=== PATIENT | female | born 1960 ===

== ENCOUNTER 2016-10-30 12:20 | Emergency (ER) | payer MEDICARE ==
[2016-10-30 12:33] VITALS: TEMP 97.9
--- NOTE | 2016-10-30 14:24 | C.PDOC ---
History Of Present Illness Pt c/o left heel pain. Denies trauma. Time Seen by Provider: 10/30/16 12:35 Chief Complaint (Nursing): Lower Extremity Problem/Injury History Per: Patient Onset/Duration Of Symptoms: Days (2) Current Symptoms Are (Timing): Still Present Severity: Moderate Additional History Per: Prior Records - Ankle/Foot Feet: 1 - Pain Past Medical History Reviewed: Historical Data, Nursing Documentation, Vital Signs Vital Signs: Last Vital Signs Temp 97.9 F 10/30/16 12:30 Pulse 74 10/30/16 12:30 Resp 18 10/30/16 12:30 BP 129/85 10/30/16 12:30 Pulse Ox 100 10/30/16 14:24 - Medical History PMH: Depression - [facility] Procedures DRAINAGE OF PERICARDIAL CAVITY, PERCUTANEOUS APPROACH, DIAGN (05/21/15) EXCISION OF STOMACH, ENDO, DIAGN (05/21/15) INTRODUCTION OF SERUM/TOX/VACCINE INTO MUSCLE, PERC APPROACH (05/21/15) PHARMACOTHERAPY FOR SUBSTANCE ABUSE, NICOTINE REPLACE (05/21/15) Family History: States: Unknown Family Hx - Social History Hx Tobacco Use: Yes Hx Alcohol Use: Yes (occasionally) Hx Substance Use: No - Immunization History Hx Tetanus Toxoid Vaccination: No Hx Influenza Vaccination: No Hx Pneumococcal Vaccination: No Review Of Systems Except As Marked, All Systems Reviewed And Found Negative. Constitutional: Negative for: Fever, Weakness Cardiovascular: Negative for: Chest Pain Respiratory: Negative for: Shortness of Breath Gastrointestinal: Negative for: Vomiting, Abdominal Pain Musculoskeletal: Positive for: Foot Pain (left). Negative for: Neck Pain, Back Pain, Leg Pain Skin: Negative for: Rash Neurological: Negative for: Weakness, Numbness, Seizures, Altered Mental Status Physical Exam - Physical Exam Appears: Non-toxic, No Acute Distress Skin: Normal Color, Warm, Dry Head: Atraumatic, Normacephalic Eye(s): bilateral: PERRL Neck: Normal ROM, Supple Extremity: Normal ROM, Tenderness (around left heel area), No Pedal Edema, No Calf Tenderness, Capillary Refill (wnl), No Deformity, Swelling (around left heel area) Extremity: Bilateral: Normal Color And Temperature Pulses: Left Dorsalis Pedis: Normal Neurological/Psych: Oriented x3, Normal Motor, Normal Sensation ED Course And Treatment O2 Sat by Pulse Oximetry: 100 Pulse Ox Interpretation: Normal - Other Rad Left foot x-rays X-Ray: Interpreted by Me, Viewed By Me Interpretation: No acute fx. Reassessment Condition: Improved Disposition Counseled Patient/Family Regarding: Studies Performed, Diagnosis, Need For Followup, Rx Given - Disposition Referrals: Roe Lenz MD [Staff Provider] - [facility] [Outside] Disposition: HOME/ ROUTINE Disposition Time: 14:46 Condition: STABLE Additional Instructions: Rest. Elevate. Ice. Follow up with a Web Software Engineer (Foot doctor) for further evaluation and treatment. Return to the ER if you develop worsening of symptoms or if you have any other concerns. Prescriptions: Ibuprofen [Motrin Tab] 400 mg PO TID PRN #15 tab PRN Reason: Pain, Moderate (4-7) Instructions: Heel Spur (ED) - Clinical Impression Clinical Impression: Pain of left heel
--- NOTE | 2016-10-30 14:33 | RAD ---
PROCEDURE: Left Foot Radiographs. HISTORY: Posterior foot pain. COMPARISON: None. FINDINGS: BONES: There is no acute fracture or bone destruction. There is diffuse bone demineralization. JOINTS: There is severe degenerative osteoarthrosis in the 1st MTP joint with medial subluxation and moderate hallux valgus. SOFT TISSUES: Normal. OTHER FINDINGS: None. 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 No acute displaced fracture or dislocation.
[2016-10-30 15:18] VITALS: BP 126/78; PULSE 64; RESP 20; O2SAT 99
== END 2016-10-30 15:45 | disposition home or self-care (01) ==
LOC: C.ER 12:20
DX: M79.672 Pain in left foot (principal)

== ENCOUNTER 2016-12-21 06:07 | Day surgery (SDC) | payer MEDICARE, OTHER ==
[2016-12-18 10:13] VITALS: BMI 23.6
[2016-12-21 07:09] VITALS: O2SAT 100
[2016-12-21] MEDS ORDERED: Propofol 10 mg/ml Inj (20 ML) ONE ×2 (07:42→08:23)
[2016-12-21] MEDS ORDERED: Lactated Ringer's 500 ML IV ONE ×2 (07:52→08:45)
[2016-12-21 09:07] VITALS: TEMP 98
[2016-12-21 10:05] VITALS: BP 110/68; PULSE 70; RESP 20
== END 2016-12-21 10:00 | disposition home or self-care (01) ==
LOC: C.ENDO 06:07
PROVIDERS: ATTEND Internal Medicine Gastroenterology
DX: Z12.11 Encounter for screening for malignant neoplasm of colon (principal); D12.2 Benign neoplasm of ascending colon; D12.3 Benign neoplasm of transverse colon; D12.4 Benign neoplasm of descending colon; K62.1 Rectal polyp; K57.30 Diverticulosis of large intestine without perforation or abscess without bleeding; K64.1 Second degree hemorrhoids; K29.70 Gastritis, unspecified, without bleeding; K20.9 Esophagitis, unspecified; K29.80 Duodenitis without bleeding; K44.9 Diaphragmatic hernia without obstruction or gangrene
CPT/HCPCS: 43239; 45380; 45385; 88305; J2704; J3010; J7120

== ENCOUNTER 2017-01-12 06:25 | Day surgery (SDC) | payer MEDICARE, OTHER ==
[2016-12-18 10:31] VITALS: BMI 23.6
[2017-01-12 07:08] VITALS: O2SAT 100
[2017-01-12] MEDS ORDERED: Ketamine 50 mg/ml Inj (10 ml) ONE (07:54)
[2017-01-12] MEDS ORDERED: Midazolam 2 MG/2 ML VIAL ONE (07:56)
[2017-01-12] MEDS ORDERED: Propofol 10 mg/ml Inj (20 ML) ONE (07:56)
[2017-01-12] MEDS ORDERED: Strong Iodine Topical Sol. 5%-10% TOP ONE (08:14)
[2017-01-12] MEDS ORDERED: Lactated Ringer's 500 ML IV SCH (08:15)
--- NOTE | 2017-01-12 08:18 | CP.SDSHP ---
Same Day Surgery H & P - History Proposed Procedure: EGD/EUS/EMR Pre-Op Diagnosis: SCC of esophagus - Previous Medical/Surgical History Comments: pancreatitis - Allergies Allergies: Allergies No Known Allergies Allergy (Verified 10/30/16 14:00) - Physical Exam General Appearance: nl Vital Signs: Vital Signs 01/12/17 06:58 Temperature 97 F L Pulse Rate 80 Respiratory 20 Rate Blood Pressure 102/71 O2 Sat by Pulse 100 Oximetry Mental Status: Alert & Oriented x3 Neuro: WNL Heart: WNL Lungs: WNL GI: WNL - {Optional Preform as Required} Abdomen: WNL - Impression Impression: SCC of esophagus Pt. Evaluated Today:Candidate for Anesthesia & Procedure: Yes - Date & Time Date: 01/12/17 Time: : Short Stay Discharge - Short Stay Discharge Admitting Diagnosis/Reason for Visit: ESOPHAGEAL SQUAMOUS CELL CARANOMA Disposition: HOME/ ROUTINE
[2017-01-12] MEDS ORDERED: ePHEDrine 50 mg/ml Inj ONE (08:25)
[2017-01-12] MEDS ORDERED: Succinylcholine Chloride 20 mg/ml Syr (5 ml) IV ONE (08:25)
[2017-01-12 09:33] VITALS: TEMP 96.6
[2017-01-12 11:15] VITALS: BP 92/60; PULSE 85; RESP 21
== END 2017-01-12 11:10 | disposition home or self-care (01) ==
LOC: C.ENDO 06:25
PROVIDERS: ATTEND Internal Medicine
DX: C15.9 Malignant neoplasm of esophagus, unspecified (principal); K44.9 Diaphragmatic hernia without obstruction or gangrene; K29.70 Gastritis, unspecified, without bleeding; K29.80 Duodenitis without bleeding
CPT/HCPCS: 43237; J2704; J3010; J7120

== ENCOUNTER 2017-01-26 06:07 | Day surgery (SDC) | payer MEDICARE, OTHER ==
[2017-01-26 06:50] VITALS: BMI 23.4
[2017-01-26] MEDS ORDERED: Propofol 10 mg/ml Inj (20 ML) ONE (07:32)
[2017-01-26] MEDS ORDERED: Midazolam 2 MG/2 ML VIAL ONE (07:38)
--- NOTE | 2017-01-26 07:47 | CP.SDSHP ---
Same Day Surgery H & P - History Proposed Procedure: egd emr Pre-Op Diagnosis: scc of esophagus - Allergies Allergies: Allergies No Known Allergies Allergy (Verified 10/30/16 14:00) - Physical Exam General Appearance: nl Vital Signs: Vital Signs 01/26/17 01/26/17 06:50 07:41 Temperature 97.2 F L 97.2 F L Pulse Rate 86 86 Respiratory 20 20 Rate Blood Pressure 110/68 110/68 O2 Sat by Pulse 99 99 Oximetry Mental Status: Alert & Oriented x3 Neuro: WNL Heart: WNL Lungs: WNL GI: WNL - {Optional Preform as Required} Abdomen: WNL - Impression Impression: scc for emr Pt. Evaluated Today:Candidate for Anesthesia & Procedure: Yes - Date & Time Date: 01/26/17 Time: 07:47 Short Stay Discharge - Short Stay Discharge Admitting Diagnosis/Reason for Visit: ESOPHAGEAL SQUAMOUS CELL CARCINOMA Disposition: HOME/ ROUTINE
[2017-01-26] MEDS ORDERED: Strong Iodine Topical Sol. 5%-10% TOP ONE (08:00)
[2017-01-26] MEDS ORDERED: Rocuronium 10 mg/ml (5 ml) ONE (08:22)
[2017-01-26] MEDS ORDERED: Succinylcholine Chloride 20 mg/ml Syr (5 ml) IV ONE (09:02)
[2017-01-26] MEDS: HYDROmorphone 0.5 mg/0.5 ml ISec IVP PRN (09:55)
[2017-01-26 10:00] VITALS: O2SAT 100
[2017-01-26 11:41] VITALS: BP 127/88; PULSE 90; RESP 16; TEMP 97.8
== END 2017-01-26 11:35 | disposition home or self-care (01) ==
LOC: C.ENDO 06:07
PROVIDERS: ATTEND Internal Medicine
DX: C15.9 Malignant neoplasm of esophagus, unspecified (principal); K29.80 Duodenitis without bleeding; K44.9 Diaphragmatic hernia without obstruction or gangrene; K29.70 Gastritis, unspecified, without bleeding
CPT/HCPCS: 43239; 88305; 88312; J1170; J2001; J2250; J2405; J2704; J3010

== ENCOUNTER 2017-04-16 10:03 | Day surgery (SDC) | payer MEDICARE ==
[2017-04-16 10:38] VITALS: BMI 24.0
[2017-04-16] MEDS ORDERED: Strong Iodine Topical Sol. 5%-10% TOP ONE (10:54)
[2017-04-16] MEDS ORDERED: Propofol 10 mg/ml Inj (20 ML) ONE (11:56)
[2017-04-16] MEDS ORDERED: Rocuronium 10 mg/ml (5 ml) ONE (11:57)
[2017-04-16] MEDS ORDERED: Midazolam 2 MG/2 ML VIAL ONE (11:57)
[2017-04-16] MEDS ORDERED: Lidocaine Hydrochloride 5 ML INJ ONE ×2 (12:32→12:33)
[2017-04-16] MEDS ORDERED: Esmolol 100 mg/10ml Inj IV ONE (12:32)
[2017-04-16] MEDS ORDERED: Neostigmine Methylsulfate 3mg/3ml Syringe IV ONE (13:15)
[2017-04-16] MEDS ORDERED: Morphine 4 MG/ML VIAL IV ONE (13:45)
[2017-04-16] MEDS ORDERED: Morphine 4 MG/ML VIAL ONE (14:02)
[2017-04-16 14:12] VITALS: TEMP 96.4
[2017-04-16 16:48] VITALS: BP 122/61; PULSE 88; RESP 17; O2SAT 97
== END 2017-04-16 16:00 | disposition home or self-care (01) ==
LOC: C.ENDO 10:03
PROVIDERS: ATTEND Internal Medicine
DX: C15.9 Malignant neoplasm of esophagus, unspecified (principal); K31.7 Polyp of stomach and duodenum; K29.70 Gastritis, unspecified, without bleeding; K44.9 Diaphragmatic hernia without obstruction or gangrene
CPT/HCPCS: 43239; 43251; 88305; 88313; 88342; J2250; J2270; J2405; J2704; J2710; J2765; J3010

== ENCOUNTER 2017-06-11 06:09 | Day surgery (SDC) | payer MEDICARE ==
[2017-05-03 09:14] VITALS: BMI 24.5
[2017-06-11 07:07] LABS: MEAN CELL VOLUME 85.4 fL (81.0-99.0); MEAN CORPUSCULAR HEMOGLOBIN 29.3 pg (27.0-31.0); MEAN CORPUSCULAR HGB CONC 34.3 g/dL (33.0-37.0); MEAN PLATELET VOLUME 7.7 fL (7.2-11.7); RBC 4.43 Mil/uL (3.80-5.20); RED CELL DISTRIBUTION WIDTH 15.9 % (11.5-14.5)
[2017-06-11 07:16] LABS: PROTHROMBIN TIME 11.2 SECONDS (9.7-12.2)
[2017-06-11 07:32] LABS: BLOOD UREA NITROGEN 16 mg/dL (7-17); CALCIUM 9.4 mg/dl (8.6-10.4); GFR AFRICAN-AMERICAN > 60; GFR NON-AFRICAN AMERICAN > 60
--- NOTE | 2017-06-11 07:59 | CP.SDSHP ---
Same Day Surgery H & P - History Proposed Procedure: egd emr Pre-Op Diagnosis: scc of esophagus - Previous Medical/Surgical History Previous Surgical History: s/p emr esophagus - Allergies Allergies: Allergies No Known Allergies Allergy (Verified 06/11/17 06:47) - Physical Exam General Appearance: nl Vital Signs: Vital Signs 06/11/17 06:40 Temperature 97.4 F L Pulse Rate 80 Respiratory 20 Rate Blood Pressure 113/72 O2 Sat by Pulse 98 Oximetry Mental Status: Alert & Oriented x3 Neuro: WNL Heart: WNL Lungs: WNL GI: WNL - {Optional Preform as Required} Abdomen: WNL - Impression Impression: scc of esophagus Pt. Evaluated Today:Candidate for Anesthesia & Procedure: Yes - Date & Time Date: 06/11/17 Time: 07:59 Short Stay Discharge - Short Stay Discharge Admitting Diagnosis/Reason for Visit: MALIGNANT NEOPLASM OF ESOPHAGUS, PANCREATITIS, PVD Disposition: HOME/ ROUTINE
[2017-06-11] MEDS ORDERED: Succinylcholine Chloride 20 mg/ml Syr (5 ml) IV ONE (08:05)
[2017-06-11] MEDS ORDERED: Rocuronium 10 mg/ml (5 ml) ONE (08:05)
[2017-06-11] MEDS ORDERED: Propofol 10 mg/ml Inj (20 ML) ONE (08:05)
[2017-06-11] MEDS ORDERED: Lidocaine Hydrochloride 5 ML INJ ONE (08:05)
[2017-06-11] MEDS ORDERED: Strong Iodine Topical Sol. 5%-10% TOP ONE (08:15)
[2017-06-11] MEDS ORDERED: Neostigmine Methylsulfate 3mg/3ml Syringe IV ONE (08:54)
[2017-06-11] MEDS ORDERED: Lactated Ringer's 500 ML IV SCH (09:30)
[2017-06-11 09:49] VITALS: O2SAT 100
[2017-06-11 11:08] VITALS: BP 108/83; PULSE 73; RESP 18; TEMP 98
== END 2017-06-11 11:00 | disposition home or self-care (01) ==
LOC: C.ENDO 06:09
PROVIDERS: ATTEND Internal Medicine
DX: C15.9 Malignant neoplasm of esophagus, unspecified (principal); I73.9 Peripheral vascular disease, unspecified; K85.90 Acute pancreatitis without necrosis or infection, unspecified
CPT/HCPCS: 36415; 43239; 43251; 80048; 85027; 85610; 85730; 88305; 88312; 88313; 88342; J2405; J2704; J2710; J3010; J7120

== ENCOUNTER 2017-07-30 06:12 | Day surgery (SDC) | payer MEDICARE, OTHER ==
[2017-07-24 09:16] VITALS: BMI 24.0
[2017-07-30] MEDS ORDERED: Simethicone 40 mg/0.6 ml Liquid (30 ml) ONE (07:26)
[2017-07-30] MEDS ORDERED: Propofol 10 mg/ml Inj (20 ML) ONE (07:47)
[2017-07-30] MEDS ORDERED: Strong Iodine Topical Sol. 5%-10% TOP ONE (07:51)
--- NOTE | 2017-07-30 07:53 | CP.SDSHP ---
Same Day Surgery H & P - History Proposed Procedure: egd/emr Pre-Op Diagnosis: scc esophagus - Previous Medical/Surgical History Cardiac: Hypertension, PVD - Allergies Allergies: Allergies No Known Allergies Allergy (Verified 06/11/17 06:47) - Physical Exam General Appearance: nl Vital Signs: Vital Signs 07/30/17 06:38 Temperature 97.1 F L Pulse Rate 80 Respiratory 20 Rate Blood Pressure 110/72 O2 Sat by Pulse 98 Oximetry Mental Status: Alert & Oriented x3 Neuro: WNL Heart: WNL Lungs: WNL GI: WNL - {Optional Preform as Required} Abdomen: WNL - Impression Impression: scc esophagus Pt. Evaluated Today:Candidate for Anesthesia & Procedure: Yes - Date & Time Date: 07/30/17 Time: 07:52 Short Stay Discharge - Short Stay Discharge Admitting Diagnosis/Reason for Visit: PVD / CHRONIC PANCREATITIS / MALIGNANT NEOPLASM Disposition: HOME/ ROUTINE
[2017-07-30] MEDS ORDERED: Succinylcholine Chloride 20 mg/ml Syr (5 ml) IV ONE (08:49)
[2017-07-30 09:06] VITALS: O2SAT 100
[2017-07-30 09:30] VITALS: RESP 15; TEMP 97.5
[2017-07-30 10:31] VITALS: BP 123/85; PULSE 83
== END 2017-07-30 10:25 | disposition home or self-care (01) ==
LOC: C.ENDO 06:12
PROVIDERS: ATTEND Internal Medicine
DX: C15.9 Malignant neoplasm of esophagus, unspecified (principal); K86.1 Other chronic pancreatitis; I73.9 Peripheral vascular disease, unspecified; I10 Essential (primary) hypertension; K22.10 Ulcer of esophagus without bleeding; K29.60 Other gastritis without bleeding; K29.80 Duodenitis without bleeding; K86.81 Exocrine pancreatic insufficiency
CPT/HCPCS: 43239; 43254; 88305; 88312; J2001; J2704; J3010

== ENCOUNTER 2017-09-10 08:15 | Day surgery (SDC) | payer MEDICARE ==
[~2017-09-10 08:15] MED LIST: Propofol 10 mg/ml Inj (20 ML) ONE
[2017-09-10 08:32] VITALS: BMI 24.7
[2017-09-10] MEDS ORDERED: Strong Iodine Topical Sol. 5%-10% TOP ONE ×2 (08:50→09:49)
[2017-09-10] MEDS ORDERED: Succinylcholine Chloride 20 mg/ml Syr (5 ml) IV ONE (09:14)
[2017-09-10] MEDS ORDERED: Propofol 10 mg/ml Inj (20 ML) ONE (09:14)
--- NOTE | 2017-09-10 09:36 | CP.SDSHP ---
Same Day Surgery H & P - History Proposed Procedure: egd cryo Pre-Op Diagnosis: scc espohagus/hgd - Previous Medical/Surgical History Previous Surgical History: esophageal emr - Allergies Allergies: Allergies No Known Allergies Allergy (Verified 09/10/17 08:31) - Physical Exam General Appearance: nl Vital Signs: Vital Signs 09/10/17 09/10/17 08:43 09:08 Temperature 96.8 F L Pulse Rate 83 83 Respiratory 20 Rate Blood Pressure 130/76 O2 Sat by Pulse 100 Oximetry Mental Status: Alert & Oriented x3 Neuro: WNL Heart: WNL Lungs: WNL GI: WNL - {Optional Preform as Required} Abdomen: WNL - Impression Impression: scc esophagus Pt. Evaluated Today:Candidate for Anesthesia & Procedure: Yes - Date & Time Date: 09/10/17 Time: 09:36 Short Stay Discharge - Short Stay Discharge Admitting Diagnosis/Reason for Visit: MALIGNANT NEOPLASM OF ESOPHAGUS, UNSPECIFIED Disposition: HOME/ ROUTINE
[2017-09-10] MEDS ORDERED: HYDROmorphone 0.5 mg/0.5 ml ISec IVP PRN (10:54)
[2017-09-10 12:42] VITALS: O2SAT 96
[2017-09-10 12:46] VITALS: RESP 18
[2017-09-10 12:48] VITALS: BP 121/77; PULSE 77; TEMP 98
== END 2017-09-10 12:35 | disposition home or self-care (01) ==
LOC: C.ENDO 08:15
PROVIDERS: ATTEND Internal Medicine
DX: C15.9 Malignant neoplasm of esophagus, unspecified (principal)
CPT/HCPCS: 43235; C1886; J2001; J2704; J2765; J3010

== ENCOUNTER → 2017-10-03 | Day surgery (SDC) | payer MEDICARE ==
[~2017-10-03] MED LIST changes: +Strong Iodine Topical Sol. 5%-10% TOP ONE
[2017-10-03 11:19] VITALS: BMI 24.0
--- NOTE | 2017-10-03 13:21 | CP.SDSHP ---
Same Day Surgery H & P - History Proposed Procedure: egd cryo Pre-Op Diagnosis: scc of esophagus - Allergies Allergies: Allergies No Known Allergies Allergy (Verified 10/03/17 11:19) - Physical Exam Vital Signs: Vital Signs 10/03/17 11:32 Temperature 97.5 F L Pulse Rate 87 Respiratory 19 Rate Blood Pressure 97/75 L O2 Sat by Pulse 95 Oximetry Mental Status: Alert & Oriented x3 Neuro: WNL Heart: WNL Lungs: WNL GI: WNL - {Optional Preform as Required} Abdomen: WNL - Impression Impression: egd Pt. Evaluated Today:Candidate for Anesthesia & Procedure: Yes - Date & Time Date: 10/03/17 Time: 13:21 Short Stay Discharge - Short Stay Discharge Admitting Diagnosis/Reason for Visit: MALIGNANT NEOPLASM OF ESOPHAGUS, UNSPECIFIED Disposition: HOME/ ROUTINE
[2017-10-03 14:16] VITALS: TEMP 98; O2SAT 100
[2017-10-03 15:04] VITALS: BP 105/77; PULSE 90; RESP 18
== END | disposition home or self-care (01) ==
LOC: C.ENDO 10:19
PROVIDERS: ATTEND Internal Medicine
DX: K20.8 Other esophagitis (principal); Z85.01 Personal history of malignant neoplasm of esophagus
CPT/HCPCS: 43239; 88305; J2001; J2704; J3010

== ENCOUNTER 2017-10-29 06:36 | Day surgery (SDC) | payer MEDICARE ==
[2017-10-03 11:19] VITALS: BMI 24.0
[2017-10-29 07:16] VITALS: TEMP 97.6; O2SAT 100
--- NOTE | 2017-10-29 07:55 | CP.SDSHP ---
Same Day Surgery H & P - History Proposed Procedure: egd with bx/dilation Pre-Op Diagnosis: h/o esophageal cancer. stricture esophagus - Allergies Allergies: Allergies No Known Allergies Allergy (Verified 10/29/17 06:56) - Physical Exam Vital Signs: Vital Signs 10/29/17 06:50 Temperature 97.6 F Pulse Rate 80 Respiratory 20 Rate Blood Pressure 112/76 O2 Sat by Pulse 100 Oximetry Mental Status: Alert & Oriented x3 Neuro: WNL Heart: WNL Lungs: WNL GI: WNL - {Optional Preform as Required} Abdomen: WNL - Impression Impression: esophagal stricture Pt. Evaluated Today:Candidate for Anesthesia & Procedure: Yes - Date & Time Date: 10/29/17 Time: 07:55 Short Stay Discharge - Short Stay Discharge Admitting Diagnosis/Reason for Visit: SQUAMOUS CELL ESOPHAGEAL CANCER & STRICTURE Disposition: HOME/ ROUTINE
[2017-10-29] MEDS ORDERED: Propofol 10 mg/ml Inj (20 ML) ONE (08:51)
[2017-10-29 10:23] VITALS: BP 102/67; PULSE 72; RESP 12
--- NOTE | 2017-10-29 14:00 | RAD ---
PROCEDURE: Intraoperative Fluoroscopy. HISTORY: ESOPHAGEAL STRICTURE FINDINGS: Fluoroscopic assistance was provided for esophageal dilatation. Please refer to the operative report from RAKESH Hummel.
== END 2017-10-29 10:45 | disposition home or self-care (01) ==
LOC: C.ENDO 06:36
PROVIDERS: ATTEND Internal Medicine
DX: K22.2 Esophageal obstruction (principal); Z85.01 Personal history of malignant neoplasm of esophagus; K29.80 Duodenitis without bleeding; K44.9 Diaphragmatic hernia without obstruction or gangrene
CPT/HCPCS: 43239; 88305; C1726; J2001; J2405; J2704